=== PATIENT | female | born 1995 | race Caucasian/White ===

== ENCOUNTER → 2018-04-23 | Outpatient (CLI) | payer BC | LOC: FIMAGING 11:18 | PROVIDERS: ATTEND Family Medicine | DX: R10.31 Right lower quadrant pain (principal); Z87.42 Personal history of other diseases of the female genital tract ==

== ENCOUNTER → 2018-04-23 | Outpatient (CLI) | payer BC ==
[~2018-04-23] MED LIST: IOPAMIDOL (ISOVUE-300) 100 ML BTL ONE
== END ==
LOC: CIMAGING 14:51
PROVIDERS: ATTEND Family Medicine
DX: R10.31 Right lower quadrant pain (principal); Z87.42 Personal history of other diseases of the female genital tract; K52.9 Noninfective gastroenteritis and colitis, unspecified
CPT/HCPCS: 74177-PO; Q9967